=== PATIENT | female | born 1950 | race Caucasian/White ===

== ENCOUNTER 2020-04-02 13:29 | Outpatient (CLI) | payer MEDICARE, SELFPAY ==
--- NOTE | 2020-04-02 13:38 | XR_ITS ---
WS: [id number] DEXA (DUAL ENERGY X-RAY ABSORPTIOMETRY) Bone mineral density was performed using a [employer] machine. HISTORY: ASYMPTOMATIC MENOPAUSAL STATE COMPARISON: 01/10/2015 Lumbar spine BMD (L1-L4): 0.791 g/cm2 T score: -3.2 Z score: -1.4 Total hip BMD: Left: 0.809 g/cm2. T score: -1.6 Z score: 0.0 Right: 0.817 g/cm2. T score: -1.5 Z score: 0.1 10 year probability of a major osteoporotic fracture is 12%. Compared to the prior study from 01/10/2015. Lumbar spine bone mineral density has decreased by 9.2%. Bilateral hips bone mineral density has decreased by 7.4%. XR/XR DEXA axial skeleton* [id number] IMPRESSION: OSTEOPOROSIS based upon the WHO classification for females. Significant decrease in bone mineral density since the prior study in the lumba r spine and hips.
== END 2020-04-02 13:30 | disposition home or self-care (01) ==
LOC: RADWPI 13:37
PROVIDERS: Family Provider Family Medicine; PCP Family Medicine; Visit Provider Family Medicine
DX: Z78.0 Asymptomatic menopausal state (principal); M81.0 Age-related osteoporosis without current pathological fracture
CPT/HCPCS: 77080

== ENCOUNTER 2020-06-29 13:08 | Outpatient (CLI) | payer MEDICARE, OTHER, SELFPAY ==
--- NOTE | 2020-06-29 13:15 | XR_ITS ---
WS: [id number] Right knee, 3 views, 06/29/2020 Clinical Data: R KNEE PAIN Comparison: None. Findings: No fractures or dislocations are seen. The joint spaces are normal. The patella is intact. The soft t issues are unremarkable. XR/XR knee RT 3V* [id number] Impression: Negative right knee.
--- NOTE | 2020-06-29 13:15 | XR_ITS ---
WS: [id number] Left femur and thigh, AP and lateral views, 06/29/2020 Clinical Data: LEFT HIP PAIN Comparison: None. Findings: No fractures or dislocations are seen. The soft tissues are normal. The visualized knee shows no abno rmalities. XR/XR femur LT min 2V* [id number] Impression: Negative left femur and thigh.
--- NOTE | 2020-06-29 13:15 | XR_ITS ---
WS: [id number] Lumbar spine, 3 views, 06/29/2020 Clinical Data: PAIN IN L HIP Comparison: None. Findings: No compression fractures or subluxation is seen. Degenerative disc narrowing at L5-S1 is seen.. The t ransverse processes and SI joints are normal. Minimal anterior osteoarthritic spurring at L3, L4 and L5 seen. XR/XR lumbar spine 2-3V* [id number] Impression: 1. Degenerative disc disease at L5-S1. 2. Minimal osteoarthritis L3-L5.
--- NOTE | 2020-06-29 13:15 | XR_ITS ---
WS: [id number] Left hip, AP and frog leg, AP pelvis, 06/29/2020 Clinical Data: LEFT HIP PAIN Comparison: None. Findings: No fractures or dislocations are seen. Both hips are normal. The soft tissues are not remarkable. The pelvis is normal. The SI joints and pubic symphysis are unremarkable. XR/XR hip LT 2-3V wo/w pel* [id number] Impression: Negative left hip and AP pelvis.
--- NOTE | 2020-06-29 13:15 | XR_ITS ---
WS: [id number] Left knee, 3 views, 06/29/2020 Clinical Data: LEFT KNEE PAIN Comparison: None. Findings: No fractures or dislocations are seen. The joint spaces are normal. The patella is intact. The soft t issues are unremarkable. XR/XR knee LT 3V* [id number] Impression: Negative left knee.
== END 2020-06-29 13:09 | disposition home or self-care (01) ==
LOC: RAD 13:12
PROVIDERS: PCP Family Medicine; Visit Provider Family Medicine
DX: M25.552 Pain in left hip (principal); M25.562 Pain in left knee; M25.561 Pain in right knee; M51.37 Other intervertebral disc degeneration, lumbosacral region; M47.816 Spondylosis without myelopathy or radiculopathy, lumbar region
CPT/HCPCS: 72100; 73502; 73552; 73562

== ENCOUNTER 2020-09-10 14:48 | Outpatient (CLI) | payer MEDICARE, OTHER, SELFPAY ==
--- NOTE | 2020-09-10 14:54 | MR_ITS ---
WS: [id number] MRI LEFT KNEE HISTORY: LEFT KNEE PAIN COMPARISON: Radiograph 06/29/2020 Anterior cruciate ligament: Intact. Posterior cruciate ligament: Intact. Medial collateral ligament: Intact. Posterior lateral corner structures: Intact. Medial menisci: Intact. Normal signal, size and shape. Lateral meniscus: Intact. Normal signal, size and shape. Extensor mechanism: Distal quadriceps tendon and patellar tendons are intact. Fluid and soft tissue: Moderate to large suprapatellar joint effusion. There is also soft tissue madi a surrounding the medial femoral condyle and along the medial head of the gastrocnemius. Small Benjamin' s cyst with adjacent fluid. Osseous and articular structures: Patellofemoral compartment: Normal. Medial compartment: Very mild narrowing medial compartment. Cartilage is predominantly intact with so me very minimal fissuring. No full-thickness defects. Lateral compartment: Very mild narrowing of the lateral compartment. No full-thickness cartilage defe ct. No marrow edema. MR/MR knee LT wo con* [id number] IMPRESSION: 1. Moderate-sized suprapatellar joint effusion. 2. Subcutaneous edema along the medial posterior knee and extending inferior t o a small Benjamin's cyst. Partial rupture of the Benjamin cyst should be considered. 3. No meniscal tear.
== END 2020-09-10 14:49 | disposition home or self-care (01) ==
LOC: RADSHAW 14:53
PROVIDERS: PCP Family Medicine; Visit Provider Family Medicine
DX: M25.562 Pain in left knee (principal); M25.462 Effusion, left knee; R60.0 Localized edema
CPT/HCPCS: 73721

== ENCOUNTER → 2021-01-21 11:04 | Outpatient (BNVA) | payer MEDICARE, OTHER, SELFPAY | PROVIDERS: PCP Family Medicine; Visit Provider Internal Medicine | DX: M25.50 Pain in unspecified joint (principal); R76.8 Other specified abnormal immunological findings in serum; Z11.59 Encounter for screening for other viral diseases; Z11.1 Encounter for screening for respiratory tuberculosis; M81.0 Age-related osteoporosis without current pathological fracture; E55.9 Vitamin D deficiency, unspecified | CPT/HCPCS: 99204 ==

== ENCOUNTER 2021-01-21 12:44 | Outpatient (CLI) | payer MEDICARE, OTHER, SELFPAY ==
--- NOTE | 2021-01-21 12:52 | XR_ITS ---
WS: [id number] THORACIC SPINE TECHNIQUE: AP and lateral views are performed. HISTORY: R76.8 - Other specified abnormal immunological findings i... COMPARISON: None available. Straightening of the normal thoracic kyphosis. Posterior alignment is normal. There is disc space maida rowing throughout the thoracic spine with small endplate osteophytes. No fractures. Pedicles and inte rpedicular distances are normal. XR/XR thoracic spine 3V* [id number] IMPRESSION: Mild thoracic spondylosis. No acute findings.
--- NOTE | 2021-01-21 12:52 | XR_ITS ---
WS: [id number] RIGHT HAND: 2 VIEW(S) TECHNIQUE: PA, oblique and lateral. HISTORY: R76.8 - Other specified abnormal immunological findings i... COMPARISON: None available. No acute fracture or dislocation. Mild interphalangeal joint space narrowing. No erosions. No significant soft tissue edema or subluxat ion. XR/XR hand RT 2V [id number] IMPRESSION: Very mild osteoarthritis at the interphalangeal joints.
--- NOTE | 2021-01-21 12:52 | XR_ITS ---
WS: [id number] LEFT HAND: 2 VIEW(S) TECHNIQUE: PA and lateral. HISTORY: R76.8 - Other specified abnormal immunological findings i... COMPARISON: 07/21/2018 No acute fracture or dislocation. Minimal interphalangeal joint space narrowing. No soft tissue edema or erosions. XR/XR hand LT 2V [id number] IMPRESSION: Minimal interphalangeal joint space narrowing. Probably due to early osteoarthr itis.
--- NOTE | 2021-01-21 12:52 | XR_ITS ---
WS: [id number] LATERAL CERVICAL SPINE: 3 view. Lateral radiographs are performed in upright neutral, flexion and extension to the patient's toleranc e. HISTORY: R76.8 - Other specified abnormal immunological findings i... COMPARISON: None available. Mild straightening of the normal cervical lordosis on neutral imaging. On neutral 1.5 mm retrolisthes is of C2 and 2.5 mm retrolisthesis of C3. Near normal alignment on flexion. During extension the retr olisthesis of C2 increases to 2.0 mm and C3 retrolisthesis 3.2 mm. There is also mild retrolisthesis of C4 by 2 mm. Very mild anterior wedging of C7. XR/XR cervical spine fl/ex [id number] IMPRESSION: 1. Mild flexion and extension instability of C2, C3 and C4. 2. Mild anterior wedging of C7.
[2021-01-21 16:48] LABS: Basophils % 0.4 %; Eosinophils # 0.3 10^3/uL (0.0-0.8); Eosinophils % 4.3 %; Hematocrit 42.5 % (37.0-47.0); Hemoglobin 13.8 g/dL (11.5-15.3); Lymphocytes # 2.3 10^3/uL (0.8-4.8); Lymphocytes % 33.6 %; Mean Corpuscular HGB Conc 32.5 g/dL (30.0-36.0); Mean Corpuscular Hemoglobin 29.2 pg (28.0-34.0); Mean Corpuscular Volume 89.9 fL (81-99); Mean Platelet Volume 9.6 fL (7.4-10.4); Monocytes # 0.5 10^3/uL (0.2-0.9); Monocytes % 7.1 %; Neutrophils # 3.66 10^3/uL (1.8-7.7); Neutrophils % 54.5 %; Nucleated Red Blood Cells % 0 %; Platelet Count 292 10^3/cmm (130-400); Red Blood Count 4.73 10^6/uL (4.1-5.3); Red Cell Distribution Width 13.1 % (12.1-15.1); White Blood Count 6.7 10^3/uL (4.0-10.0)
[2021-01-21 17:31] LABS: Alanine Aminotransferase 19 U/L (0-33); Albumin Level 4.3 g/dL (3.5-5.2); Alkaline Phosphatase 84 IU/L (35-105); Anion Gap 12.1 (5-19); Aspartate Amino Transferase 24 U/L (0-32); Blood Urea Nitrogen 16 mg/dL (8-23); Calcium 9.7 mg/dL (8.5-10.5); Carbon Dioxide 30 mmol/L (22-29); Chloride 102 mmol/L (98-107); Creatine Phosphokinase 85 U/L (26-192); Globulin 3.1 g/dL (1.3-4.6); Glucose 82 mg/dL (65-115); Osmolality Calculated 290 mOsm/kg (285-295); Phosphorus 3.6 mg/dL (2.5-4.5); Potassium 4.1 mmol/L (3.5-5.1); Sodium 140 mmol/L (136-145); Total Bilirubin 0.4 mg/dL (0.15-1.2); Total Protein 7.4 g/dL (6.6-8.7)
[2021-01-21 17:32] LABS: Erythrocyte Sedimentation Rate 15 mm/hr (0-15)
[2021-01-21 18:20] LABS: Calcium 9.7 mg/dL (8.5-10.5); Parathyroid Hormone 45.2 pg/mL (15-65)
[2021-01-21 18:24] LABS: 25 Hydroxy Vitamin D 43 ng/mL (30-100)
[2021-01-21 21:41] LABS: Hepatitis B Core AB, Total Reactive (Nonreactive); Hepatitis B Surface Antigen Non-Reactive (Nonreactive); Hepatitis C Virus Antibody Non-Reactive (Nonreactive)
[2021-01-23 15:12] LABS: Quantiferon Mitogen 8.21 IU/mL; Quantiferon Nil 0.08 IU/mL; Quantiferon Plus TB1 0.64 IU/mL; Quantiferon Plus TB2 0.62 IU/mL; Quantiferon TB Gold POSITIVE (NEGATIVE)
== END 2021-01-21 12:45 | disposition home or self-care (01) ==
PROVIDERS: PCP Family Medicine; Visit Provider Internal Medicine
DX: R76.8 Other specified abnormal immunological findings in serum (principal); D86.9 Sarcoidosis, unspecified; Z51.81 Encounter for therapeutic drug level monitoring; M32.9 Systemic lupus erythematosus, unspecified; E55.9 Vitamin D deficiency, unspecified; Z11.59 Encounter for screening for other viral diseases; Z11.1 Encounter for screening for respiratory tuberculosis
CPT/HCPCS: 36415; 72040; 72072; 73120; 80053; 82306; 82310; 82550; 83970; 84100; 85025; 85651; 86140; 86480; 86704; 86803; 87340

== ENCOUNTER → 2021-02-12 16:30 | Outpatient (BNVA) | payer MEDICARE, OTHER, SELFPAY | PROVIDERS: PCP Family Medicine; Referring Provider Internal Medicine; Visit Provider Orthopaedic Surgery | DX: M54.2 Cervicalgia; M54.5 Low back pain; M47.816 Spondylosis without myelopathy or radiculopathy, lumbar region | CPT/HCPCS: 72110 ==

== ENCOUNTER 2021-02-15 14:04 | Outpatient (CLI) | payer MEDICARE, OTHER, SELFPAY ==
--- NOTE | 2021-02-15 14:20 | MR_ITS ---
WS: [id number] MRI LUMBAR SPINE NONCONTRAST HISTORY: M54.5 - Low back pain COMPARISON: 01/13/2018 TECHNIQUE: Sagittal and axial multisequence imaging is submitted. Mild straightening of the normal lumbar lordosis. No marrow edema or fracture. Moderate disc space narrowing at L5-S1. Similar to the prior study. Conus terminates normally at L1. L1-L2: Normal. L2-L3: Normal. L3-L4: Mild disc bulging and osteophytic ridging. Mild ligamentum flavum disease and facet arthritis. Mild bilateral subarticular recess and foraminal stenosis. Slightly greater on the LEFT than the RIG HT. L4-L5: Mild annular disc bulging and ligamentum flavum hypertrophy. Annular disc bulging encroaches a nd abuts the L5 nerve roots in the lateral recesses and mild foraminal narrowing. L5-S1: Mild annular disc bulging and facet arthritis. Slightly asymmetric disc bulge to the LEFT. The re is mild disc contact and displacement upon the LEFT S1 nerve root. RIGHT renal cyst measures 1.7 cm. MR/MR lumbar spine wo con* [id number] IMPRESSION: 1. No severe central or foraminal stenosis. 2. Asymmetric disc bulging at L5-S1 with contact upon the LEFT S1 nerve root. No change since the prior study. 3. Mild disc bulging contacting the L5 nerve roots bilaterally in the lateral recesses and mild bilateral foraminal stenosis. 4. Mild bilateral subarticular recess and foraminal stenosis at L3-4, LEFT gre ater than RIGHT.
--- NOTE | 2021-02-15 14:20 | MR_ITS ---
WS: [id number] MRI CERVICAL SPINE NONCONTRAST HISTORY: M54.2 - Cervicalgia COMPARISON: None available. Technique: Multiplanar, multisequence noncontrast imaging of the cervical spine. 2 mm retrolisthesis of C3. Otherwise alignment is normal. Mild disc space narrowing and desiccation t hroughout most significant at C5-6. Signal within the cervical cord is normal. Visualized posterior fossa is unremarkable. Craniocervical junction, C1 and C2 relationship, odontoid process and soft tissues are normal. C2-C3: Small central disc protrusion with no stenosis. C3-C4: Mild osteophytic ridging with a central disc protrusion. Near contact on the ventral thecal sa c without displacement. No significant stenosis. C4-C5: Mild annular disc bulge with a central shallow disc protrusion. No stenosis. C5-C6: Diffuse annular disc bulging with a shallow central disc protrusion. Mild bilateral foraminal narrowing due to disc osteophyte disease. C6-C7: Mild annular disc bulging and small osteophytes. No stenosis. C7-T1: Normal. T2-3: Seen only on the sagittal sequence is a possibility of a small RIGHT paracentral disc protrusio n or osteophyte. MR/MR cervical spin wo con* [id number] IMPRESSION: 1. No severe central or foraminal stenosis. 2. Near contact on the ventral thecal sac by disc osteophyte at C3-4. 3. Mild bilateral foraminal stenosis at C5-6.
== END 2021-02-15 14:05 | disposition home or self-care (01) ==
PROVIDERS: PCP Family Medicine; Visit Provider Orthopaedic Surgery
DX: M48.02 Spinal stenosis, cervical region (principal); M25.78 Osteophyte, vertebrae; M51.27 Other intervertebral disc displacement, lumbosacral region; M48.061 Spinal stenosis, lumbar region without neurogenic claudication
CPT/HCPCS: 72141; 72148

== ENCOUNTER → 2021-10-04 16:05 | Outpatient (BNVA) | payer MEDICARE, OTHER, SELFPAY | PROVIDERS: PCP Family Medicine; Visit Provider Internal Medicine | DX: M25.50 Pain in unspecified joint (principal); R76.8 Other specified abnormal immunological findings in serum; Z79.899 Other long term (current) drug therapy | CPT/HCPCS: 80053; 85025; 85651; 86140 ==

== ENCOUNTER → 2021-10-08 12:55 | Outpatient (BNVA) | payer MEDICARE, OTHER, SELFPAY | PROVIDERS: PCP Family Medicine; Visit Provider Internal Medicine | DX: M25.561 Pain in right knee (principal); R76.8 Other specified abnormal immunological findings in serum; M54.2 Cervicalgia; R76.12 Nonspecific reaction to cell mediated immunity measurement of gamma interferon antigen response without active tuberculosis; Z79.899 Other long term (current) drug therapy; M25.569 Pain in unspecified knee | CPT/HCPCS: 71046; 73560; 99214 ==

== ENCOUNTER 2021-10-08 15:10 | Outpatient (CLI) | payer MEDICARE, OTHER, SELFPAY ==
--- NOTE | 2021-10-08 15:17 | XR_ITS ---
WS: [id number] KNEE RIGHT TECHNIQUE: 2 views of the right knee CLINICAL INFORMATION: M25.569 - Pain in unspecified knee COMPARISON: June 29, 2020 FINDINGS: Exam is somewhat underpenetrated which obscures fine bony detail Right knee is normal in appearance. No evidence of acute fracture dislocation. No significant effusio n. Patella is normal. XR/XR knee RT 1-2V [id number] IMPRESSION: Right knee appears normal. If persistent pain, MRI could be obtained for furthe r evaluation. Kellgren-Nixon Classification: grade 1 (doubtful): doubtful joint space narr owing and possible osteophytic lipping
--- NOTE | 2021-10-08 15:17 | XR_ITS ---
WS: [id number] PROCEDURE: XR chest 2V* [id number] CLINICAL INFORMATION: Z79.899 - Other snf (current) drug therapy COMPARISON: FINDINGS: Heart: Normal cardiac silhouette. Lungs: Lungs are clear. No consolidation or pleural fluid. No acute pulmonary infiltrates. Bones: Normal visualized bony structures. XR/XR chest 2V* [id number] IMPRESSION: Normal chest
== END 2021-10-08 15:11 | disposition home or self-care (01) ==
PROVIDERS: PCP Family Medicine; Visit Provider Internal Medicine
DX: Z79.899 Other long term (current) drug therapy (principal); M25.569 Pain in unspecified knee
CPT/HCPCS: 71046; 73560

== ENCOUNTER 2021-12-17 10:19 | Outpatient (CLI) | payer MEDICARE, OTHER, SELFPAY ==
--- NOTE | 2021-12-17 10:30 | US_ITS ---
WS: [id number] RIGHT UPPER QUADRANT ULTRASOUND HISTORY: RUQ PAIN COMPARISON: None available. Liver: 13.5 cm in length. Normal size liver. Variable echogenicity throughout the liver. There is are as of increased and decreased echogenicity with no mass. Geographic distribution suggests fatty mejia es. Normal portal vein. Portal Vein: Normal hepatopetal flow with monophasic waveform. Gallbladder: Normally distended gallbladder with no stones or wall thickening. CBD: 0.5 cm Pancreas: Normal size and echogenicity. Right kidney: 9.8 cm in length. Normal size kidney. Cortical cyst inferior kidney measures 1.6 x 1.7 x 1.5 cm. Aorta and IVC: Unremarkable abdominal aorta and IVC. No ascites. US/US abdomen limited [id number] IMPRESSION: 1. Normal size liver with variable echogenicity. Favor hepatic steatosis with areas of fatty sparing. 2. Negative gallbladder. 3. Simple cyst lower pole RIGHT kidney.
== END 2021-12-17 10:20 | disposition home or self-care (01) ==
LOC: RAD 10:22
PROVIDERS: PCP Family Medicine; Visit Provider Family Medicine
DX: R10.11 Right upper quadrant pain (principal); N28.1 Cyst of kidney, acquired
CPT/HCPCS: 76705

== ENCOUNTER → 2021-12-19 14:58 | Outpatient (BNVA) | payer MEDICARE, OTHER, SELFPAY | PROVIDERS: PCP Family Medicine; Visit Provider Internal Medicine | DX: R76.8 Other specified abnormal immunological findings in serum (principal); Z79.899 Other long term (current) drug therapy; R53.83 Other fatigue | CPT/HCPCS: 80053; 82607; 85025; 85651; 86140 ==

== ENCOUNTER → 2022-01-02 12:51 | Outpatient (BNVA) | payer MEDICARE, OTHER, SELFPAY | PROVIDERS: PCP Family Medicine; Visit Provider Internal Medicine | DX: R10.11 Right upper quadrant pain (principal); R76.8 Other specified abnormal immunological findings in serum; R76.12 Nonspecific reaction to cell mediated immunity measurement of gamma interferon antigen response without active tuberculosis; M79.89 Other specified soft tissue disorders; M48.00 Spinal stenosis, site unspecified; Z79.899 Other long term (current) drug therapy | CPT/HCPCS: 99214 ==

== ENCOUNTER 2022-01-02 14:44 | Emergency (ER) | payer MEDICARE, OTHER, SELFPAY ==
[2022-01-02 15:03] VITALS: BP 167/62; PULSE 66; RESP 14; TEMP 36.8; O2SAT 99; BMI 26.2
--- NOTE | 2022-01-02 15:10 | USCV_ITS ---
Grimaldo Austynkennedy Age: 71 Gender: F : 1950 Exam Date: 01/02/2022 15:32 Ordering Phys: Liu Ospina DO Technologist: Tone [place] Exam Location: [facility] [place]_ Indication: left leg swelling and pain PROCEDURES: Venous duplex imaging was performed in only the left lower extremity. The following venous structures were evaluated: common femoral vein, profunda vein, proximal portion of the greater saphenous vein, superficial femoral vein, and the popliteal vein. In addition, the posterior tibial and peroneal trunk were evaluated. Serial compression, augmentation maneuvers, and spectral Doppler flow evaluation were performed. FINDINGS: Normal 2-D Doppler and augmentation and compressibility throughout the lower extremity venous structures. Additional imaging through the proximal calf veins also reveals no thrombus. Limited evaluation of the greater saphenous vein is patent with no thrombus. CONCLUSIONS No DVT left lower extremity. Dr. Mi Jung DO (Electronically Signed) Final Date: 02 January 2022 15:56 S
--- NOTE | 2022-01-02 15:12 | W.ED.GENADLT ---
HPI - General Adult General: Chief complaint: Extremity Problem,Nontraumatic Stated complaint: poss bloodclot Time Seen by Provider: 01/02/22 15:07 Source: patient Mode of arrival: ambulatory Limitations: no limitations History of Present Illness: 71-year-old female who presents to the emergency room with complaint of left leg swelling for the last week. She is intermittently had what she describes as shortness of breath with walking and activity she will feel mildly short of breath she also had a vague chest discomfort she refers to come to the sternal area and epigastric area that is been going on for the last couple of weeks as well it is not changed significantly. She is not tachycardic or hypotensive or hypoxic. Onset (ago): week(s) (1) Severity: mild Quality: aching Pain Consistency: intermittent Relieving factors: none Exacerbating factors: none Associated symptoms: Reports dyspnea (Mild); Deny chest pain, confusion, cough, diaphoresis, decreased appetite, fevers/chills, headache(s), malaise, nausea, rash, palpitations, seizures, short of breath, syncope, vomiting or weakness Treatments prior to arrival: none Review of Systems Const: Denies: fever(s), chills, body aches, malaise or diaphoresis ENMT: Denies: throat pain, ear or mastoid pain, nasal discharge or nasal congestion Card: Denies: chest pain, palpitations or syncope Resp: Reports: dyspnea (Mild); Denies: productive cough or non-productive cough GI: Denies: abdominal pain, nausea or vomiting : Denies: flank pain, difficulty voiding, dysuria, urinary frequency or urinary urgency Skin/Breast: Denies: rash Neuro: Denies: headache(s) or confusion FOR[facility]LY [facility], [facility] ED PFSH: Medical History Angioma Anxiety Depression Fibromyalgia GERD (gastroesophageal reflux disease) Hepatitis C Hypersomnia Hypertension Hypertriglyceridemia Irritable bowel disease Memory loss OCD (obsessive compulsive disorder) Palpitations Restless leg syndrome Type 2 diabetes mellitus Surgical History History of abdominal hysterectomy History of carpal tunnel release right 09-07-2012 History of colonoscopy 01/05/2015 History of rhinoplasty Social History Smoking and tobacco status: never smoked Alcohol intake: former History of recent travel: No Physical Exam Const: COMMON NORMALS: no acute distress GENERAL APPEARANCE: cooperative and comfortable ORIENTATION/CONSCIOUSNESS: Yes awake, Yes oriented to person, Yes oriented to place and Yes oriented to time HENMT: COMMON NORMALS: normocephalic, atraumatic and hearing grossly normal bilaterally HEAD & SCALP: normocephalic and atraumatic Neck/C-Spine: COMMON NORMALS: no JVD Resp: COMMON NORMALS: normal respiratory effort, No retractions, No use of accessory muscles and clear to auscultation bilaterally AUSCULTATION: clear to auscultation bilaterally Cardio: COMMON NORMALS: no JVD, regular rate, regular rhythm and No murmurs present (Cardio) RATE: regular rate RHYTHM: regular rhythm GI: COMMON NORMALS: Soft to palpation and No hepatosplenomegaly present AUSCULTATION: Yes normoactive bowel sounds PALPATION: Yes Soft to palpation, No Tenderness to palpation present (GI), No Guarding due to palpation present (GI) and Yes No hepatosplenomegaly present Extremity: COMMON NORMALS: normal to inspection, capillary refill normal, no clubbing, cyanosis or edema, no calf tenderness and no pedal edema GENERAL: Yes edema Neuro: SENSORIUM/ORIENTATION: Yes oriented to person, Yes oriented to place and Yes oriented to time Skin: COMMON NORMALS: no rashes or lesions noted GENERAL SKIN EXAM: no rashes or lesions noted Course Vital Signs: Vital signs: Vital Signs Temperature 98.3 F 01/02/22 15:03 Pulse Rate 61 01/02/22 18:16 Respiratory Rate 16 01/02/22 18:16 Blood Pressure 210/94 01/02/22 18:16 Pulse Oximetry 97 01/02/22 18:16 [facility] - General Adult Medical Decision Making Imaging reviewed no DVT. Continue current medications elevate leg suspect some of her swelling is likely related to the amlodipine. Follow-up with primary care Medical Records I reviewed the patient's medical records. Lab Data I reviewed the patient's lab results. Discharge Plan Discharge Patient Disposition: Home Clinical Impression: Leg swelling Condition: Stable Prescriptions: No Action albuterol sulfate 90 mcg/actuation HFA aerosol inhaler 1 inh inhalation QID 0RF amlodipine 10 mg tablet 10 mg PO DAILY 0RF clindamycin phosphate 1 % gel 1 applic topical DAILY 0RF Flovent HFA 110 mcg/actuation HFA aerosol inhaler 1 puff inhalation BID 0RF fluticasone propionate 50 mcg/actuation spray,suspension 1 spray intranasal DAILY 0RF Rx Instructions: administer into each nostril lisinopril 20 mg tablet 20 mg PO DAILY 0RF metoprolol tartrate 25 mg tablet 25 mg PO DAILY 0RF venlafaxine 75 mg tablet 75 mg PO DAILY 0RF valacyclovir 500 mg tablet 500 mg PO DAILY 0RF cholecalciferol (vitamin D3) 10 mcg (400 unit) capsule 10 mcg PO DAILY 0RF guaifenesin [Mucinex] 600 mg tablet extended release 12hr 600 mg PO Q12H PRN0RF vitamin B complex [B Complex-Vitamin B12] Tablet 1 tab PO DAILY 0RF biotin 5 mg capsule 5 mg PO DAILY 0RF All Day Allergy (cetirizine) 10 mg capsule 10 mg PO DAILY PRN0RF CBD sublingual 0RF Discharge Orders: Discharge ED (Routine); Ordered 01/02/22 Ordered By: Liu Ospina Referrals: Ashlee Fry MD [Primary Care Provider] - Discharge Diet: Usual diet Discharge Activity: Increase activity as tolerated Patient Instructions: Opioid Safety Activity Restrictions/Additional Instructions: If leg discomfort persist follow-up with your primary care doctor Coding Level of Care Code 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
--- NOTE | 2022-01-02 15:15 | ECG_ITS ---
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 Measurements Intervals Priddy Rate: 58 P: 52 GA: 142 QRS: 19 QRSD: 78 T: 61 QT: 405 QTc: 400 Interpretive Statements SINUS BRADYCARDIA No previous ECG available for comparison Electronically Signed On 01-02-2022 23:51:16 CDT by Ryne Osorio M.D. [email or web address]
[2022-01-02 17:25] VITALS: BP 208/81; PULSE 60; RESP 16; O2SAT 98
[2022-01-02] MEDS: hyDRALAzine 20 mg/mL INJ 1 mL 25 MG IM (18:10)
[2022-01-02] MEDS: amlodipine 10 mg Tablet PO (18:11)
[2022-01-02 18:16] VITALS: BP 210/94; PULSE 61; RESP 16; O2SAT 97
== END 2022-01-02 18:17 | disposition home or self-care (01) ==
PROVIDERS: Emergency Provider Family Medicine; PCP Family Medicine
DX: M79.89 Other specified soft tissue disorders (principal); I10 Essential (primary) hypertension; E11.9 Type 2 diabetes mellitus without complications
CPT/HCPCS: 93005; 93971; 96372; 99283; J0360

== ENCOUNTER → 2022-12-09 10:26 | Outpatient (BNVA) | payer MEDICARE, OTHER, SELFPAY | PROVIDERS: PCP Family Medicine; Visit Provider Internal Medicine | DX: M25.50 Pain in unspecified joint (principal); M79.89 Other specified soft tissue disorders; M25.569 Pain in unspecified knee | CPT/HCPCS: 80053; 85025; 85651; 86140 ==

== ENCOUNTER → 2022-12-12 11:37 | Outpatient (BNVA) | payer MEDICARE, OTHER, SELFPAY | PROVIDERS: PCP Family Medicine; Visit Provider Internal Medicine | DX: R76.8 Other specified abnormal immunological findings in serum (principal); M79.89 Other specified soft tissue disorders; G62.9 Polyneuropathy, unspecified; R51.9 Headache, unspecified; R76.12 Nonspecific reaction to cell mediated immunity measurement of gamma interferon antigen response without active tuberculosis | CPT/HCPCS: 99214 ==

== ENCOUNTER 2023-01-01 09:34 | Outpatient (CLI) | payer MEDICARE, OTHER, SELFPAY ==
--- NOTE | 2023-01-01 08:30 | CT_ITS ---
WS: [id number] CT HEAD NONCONTRAST HISTORY: R51.9 - Headache, unspecified TECHNIQUE: Contiguous axial imaging performed through the brain in 2.5 mm imaging. Bone and soft tiss ue windows. Sagittal and coronal reformats reviewed. All CT scans at [facility] use at least one of these dose optimization techniques: automated exposure control; mA and/or kV adjustment per pa tient size (includes targeted exams where dose is matched to clinical indication); or iterative recon struction. DLP: 991.59 mGy.cm COMPARISON: None available. No acute intracranial hemorrhage, midline shift or mass effect. Moderate atrophy. Severe bilateral extensive small vessel ischemic changes. There is confluent low at tenuation within the white matter. Mild cerebellar atrophy also. No prior large territory infarct. Ventricles: Normal size with no hydrocephalus. No inferior displacement of cerebellar tonsils. Paranasal sinuses: As visualized are clear. Mastoid air cells: Well pneumatized. Calvarium and scalp: Skull is intact with no soft tissue edema or swelling. CT/CT head wo con* [id number] IMPRESSION: 1. No acute intracranial hemorrhage or edema. 2. Moderate atrophy cerebellum and cerebrum. 3. Severe small vessel white matter ischemic disease.
--- NOTE | 2023-01-01 09:30 | USCV_ITS ---
Jeny Grimaldo Age: 72 Gender: F : 1950 Exam Date: 01/01/2023 10:07 Ordering Phys: Su De La Vega MD Technologist: Exam Location: [facility] [place] Indication: RIGHT LEFT Brachial 145.00 mmHg Brachial 148.00 mmHg Pressure (mmHg) Waveform Pressure (mmHg) Waveform 1.10 Ankle/Brachial Index 1.13 FINDINGS Resting KIET 1.1 on the right and 1.13 on the left. PVR waveforms showing slight blunting of the dicrotic notch CONCLUSIONS 1. Normal resting ABIs bilaterally. 2. Some features of arterial sclerosis No significant arterial obstruction, based on the above findings Dr Marvin Granados MD [facility] (Electronically Signed) Final Date: 02 January 2023 18:27 S
== END 2023-01-01 09:35 | disposition home or self-care (01) ==
LOC: RAD 09:38
PROVIDERS: PCP Family Medicine; Visit Provider Internal Medicine
DX: R51.9 Headache, unspecified (principal); I73.9 Peripheral vascular disease, unspecified
CPT/HCPCS: 70450; 93922

== ENCOUNTER → 2023-02-16 12:39 | Outpatient (BNVA) | payer MEDICARE, OTHER, SELFPAY | PROVIDERS: PCP Family Medicine; Visit Provider Internal Medicine | DX: M81.0 Age-related osteoporosis without current pathological fracture (principal) | CPT/HCPCS: 99204 ==

== ENCOUNTER 2023-02-24 14:53 | Outpatient (CLI) | payer MEDICARE, OTHER, SELFPAY ==
--- NOTE | 2023-02-24 15:30 | XR_ITS ---
WS: [id number] DEXA (DUAL ENERGY X-RAY ABSORPTIOMETRY) Bone mineral density was performed using a [employer] machine. HISTORY: osteoporosis COMPARISON: 04/02/2020 Lumbar spine BMD (L1-L4): 0.856 g/cm2 T score: -2.7 Z score: -0.9 Total hip BMD: Left: 0.781 g/cm2. T score: -1.8 Z score: -0.1 Right: 0.807 g/cm2. T score: -1.6 Z score: 0.1 10 year probability of a major osteoporotic fracture is 12.4%. Compared to the prior study from 04/02/2020. Lumbar spine bone mineral density has increased by 8.2%. Bilateral hips bone mineral density has decreased by 2.3%. XR/XR DEXA axial skeleton* 81452 IMPRESSION: OSTEOPENIA based upon the WHO classification for females. Significant increase in bone mineral density within the lumbar spine. Significant decrease of bone mineral density within the hips.
== END 2023-02-24 14:54 | disposition home or self-care (01) ==
PROVIDERS: PCP Family Medicine; Visit Provider Internal Medicine
DX: M81.0 Age-related osteoporosis without current pathological fracture (principal)
CPT/HCPCS: 77080

== ENCOUNTER → 2023-02-25 10:02 | Outpatient (BNVA) | payer MEDICARE, OTHER, SELFPAY | PROVIDERS: PCP Family Medicine; Referring Provider Internal Medicine; Visit Provider Internal Medicine | DX: E11.9 Type 2 diabetes mellitus without complications (principal) | CPT/HCPCS: 80053; 80061; 82043; 82306; 82310; 83036; 83970; 84439; 84443 ==

== ENCOUNTER → 2023-02-27 09:09 | Outpatient (BNVA) | payer MEDICARE, OTHER, SELFPAY | PROVIDERS: PCP Family Medicine; Referring Provider Internal Medicine; Visit Provider Internal Medicine | DX: E11.9 Type 2 diabetes mellitus without complications (principal); M81.0 Age-related osteoporosis without current pathological fracture | CPT/HCPCS: 82384; 82530; 82570 ==

== ENCOUNTER → 2023-03-04 07:36 | Outpatient (BNVA) | payer MEDICARE, OTHER, SELFPAY | PROVIDERS: PCP Family Medicine; Visit Provider Internal Medicine | DX: M81.0 Age-related osteoporosis without current pathological fracture (principal); E11.9 Type 2 diabetes mellitus without complications | CPT/HCPCS: 36415; 83690; 99214 ==

== ENCOUNTER → 2023-03-07 12:20 | Outpatient (BNVA) | payer MEDICARE, OTHER, SELFPAY | PROVIDERS: PCP Family Medicine; Visit Provider Emergency Medicine | DX: R10.9 Unspecified abdominal pain (principal); R34 Anuria and oliguria | CPT/HCPCS: 81000; 87086 ==

== ENCOUNTER → 2023-03-19 07:49 | Outpatient (BNVA) | payer MEDICARE, OTHER, SELFPAY | PROVIDERS: PCP Internal Medicine; Referring Provider Internal Medicine; Visit Provider Psychiatry & Neurology Neurology | DX: G62.9 Polyneuropathy, unspecified (principal); R51.9 Headache, unspecified; M79.89 Other specified soft tissue disorders | CPT/HCPCS: 36415; 82607; 82746; 83921; 86617; 86780 ==

== ENCOUNTER → 2023-03-19 07:49 | Outpatient (BNVA) | payer MEDICARE, OTHER, SELFPAY | PROVIDERS: PCP Internal Medicine; Referring Provider Internal Medicine; Visit Provider Psychiatry & Neurology Neurology | DX: R41.3 Other amnesia (principal); G25.81 Restless legs syndrome; R51.9 Headache, unspecified; R29.818 Other symptoms and signs involving the nervous system; E11.42 Type 2 diabetes mellitus with diabetic polyneuropathy; G47.00 Insomnia, unspecified; H91.93 Unspecified hearing loss, bilateral; Z97.4 Presence of external hearing-aid; R90.89 Other abnormal findings on diagnostic imaging of central nervous system; G62.9 Polyneuropathy, unspecified; M79.89 Other specified soft tissue disorders | CPT/HCPCS: 36415; 82607; 82746; 83921; 86617; 86780; 99204 ==

== ENCOUNTER 2023-03-31 12:25 | Outpatient (CLI) | payer MEDICARE, OTHER, SELFPAY ==
--- NOTE | 2023-03-31 13:15 | USCV_ITS ---
Jeny Grimaldo Age: 72 Gender: F : 1950 Exam Date: 03/31/2023 12:56 Ordering Phys: Jeffrey Raygoza MD Technologist: [place] [facility] [place] Indication: Risk Factors: Previous Vascular Surgery: Right Brachial BP: / Left Brachial BP: / Right Left Velocity (cm/s) Spectral Plaque Velocity (cm/s) Spectral Plaque Syst/Diast Broadening Syst/Diast Broadening 66.00/ 15.30 Prox CCA 68.40 / 12.40 61.70/ 12.30 Mid CCA 68.30 / 14.90 58.00/ 16.00 Distal CCA 53.10 / 13.60 49.40/ 13.60 Prox ICA 66.70 / 20.40 63.00/ 21.20 Mid ICA 81.50 / 26.30 64.70/ 21.60 Distal ICA 69.20 / 24.50 54.90 ECA 67.30 0.98 ICA/CCA 1.19 Antegrade Vertebral Antegrade 54.40/ 15.50 cm/s 42.00/ 13.10 cm/s Tri Subclavian Tri 121.3 93.70 0 CONCLUSIONS Right ICA stenosis <50%. Moderate calcified atheromatous plaque right carotid bulb/ICA. Left ICA stenosis <50%. Mild atheromatous plaque left carotid bulb/ICA. Intimal thickening in the common carotid arteries and internal carotid arteries bilaterally. Normal antegrade Doppler flow noted in the right vertebral artery. Normal antegrade Doppler flow noted in the left vertebral artery. Sai Santos MD (Electronically Signed) Final Date: 31 March 2023 16:41 S
== END 2023-03-31 12:26 | disposition home or self-care (01) ==
PROVIDERS: PCP Internal Medicine; Visit Provider Psychiatry & Neurology Neurology
DX: G62.9 Polyneuropathy, unspecified (principal); R51.9 Headache, unspecified
CPT/HCPCS: 93880

== ENCOUNTER 2023-04-07 10:46 | Outpatient (CLI) | payer MEDICARE, OTHER, SELFPAY ==
--- NOTE | 2023-04-07 11:00 | MR_ITS ---
WS: [id number] MRI HEAD WITHOUT CONTRAST TECHNIQUE: Sagittal T1, T2 axial, T2 axial FLAIR, axial and coronal T1 images, axial susceptibility w eighted imaging, axial diffusion weighted images, and coronal T2 images were obtained. CLINICAL INFORMATION: R51.9 - Headache, unspecified COMPARISON: CT head January 01, 2023 FINDINGS: No evidence of restricted diffusion to suggest acute ischemia. Ventricular system and basal cisterns are patent. Moderate to advanced small vessel changes with moderate parenchymal volume loss. Small ve ssel changes in the lorena. Normal posterior fossa. Normal vascular flow voids at the skull base. No ex tra-axial fluid collections. No evidence of mass or mass effect. Mild mucosal thickening in the paran abel sinuses. Opacification LEFT maxillary sinus. Mastoid air cells well aerated. Tiny chronic lacuna r infarct LEFT caudate. No hemosiderin on susceptibly weighted images. Normal optic chiasm and pituitary infundibulum. Modera te symmetric atrophy temporal lobes and hippocampal formations. MR/MR head wo con* [id number] IMPRESSION: 1. No evidence of restricted diffusion to suggest acute ischemia. 2. Moderate to advanced small vessel changes with moderate parenchymal volume loss. 3. Tiny chronic lacunar infarct LEFT caudate. 4. No hemosiderin on susceptibly weighted images. 5. Moderate symmetric atrophy temporal lobes and hippocampal formations. 6. Mild mucosal thickening in the ethmoid air cells. Chronic appearing opacifi cation LEFT maxillary sinus
== END 2023-04-07 10:47 | disposition home or self-care (01) ==
PROVIDERS: PCP Internal Medicine; Visit Provider Psychiatry & Neurology Neurology
DX: G62.9 Polyneuropathy, unspecified (principal); R51.9 Headache, unspecified
CPT/HCPCS: 36415; 70551; 82607; 82746; 83921; 86617; 86780

== ENCOUNTER → 2023-04-17 09:33 | Outpatient (BNVA) | payer MEDICARE, OTHER, SELFPAY | PROVIDERS: PCP Internal Medicine; Visit Provider Internal Medicine | DX: M48.00 Spinal stenosis, site unspecified; R76.8 Other specified abnormal immunological findings in serum; R76.12 Nonspecific reaction to cell mediated immunity measurement of gamma interferon antigen response without active tuberculosis | CPT/HCPCS: 99214 ==

== ENCOUNTER 2023-04-23 12:03 | Outpatient (CLI) | payer MEDICARE, OTHER, SELFPAY ==
[2023-04-23 13:19] LABS: Basophils % 0.4 %; Eosinophils # 0.4 10^3/uL (0.0-0.8); Eosinophils % 4.8 %; Hematocrit 41.1 % (37.0-47.0); Hemoglobin 13.7 g/dL (11.5-15.3); Lymphocytes % 27.2 %; Mean Corpuscular HGB Conc 33.3 g/dL (30.0-36.0); Mean Corpuscular Volume 90.1 fl (81-99); Mean Platelet Volume 9.7 fL (7.4-10.4); Monocytes # 0.5 10^3/uL (0.2-0.9); Monocytes % 6.8 %; Neutrophils # 4.43 10^3/uL (1.8-7.7); Neutrophils % 60.5 %; Nucleated Red Blood Cells % 0 %; Platelet Count 272 10^3/cmm (130-400); Red Blood Count 4.56 10^6/uL (4.1-5.3); Red Cell Distribution Width 12.1 % (12.1-15.1); White Blood Count 7.3 10^3/uL (4.0-10.0)
[2023-04-23 13:20] LABS: Erythrocyte Sedimentation Rate 2 mm/hr (0-15)
[2023-04-23 13:40] LABS: Alanine Aminotransferase 24 U/L (0-33); Alkaline Phosphatase 112 U/L (35-105); Aspartate Amino Transferase 22 U/L (0-32); Blood Urea Nitrogen 18 mg/dL (8-23); Calcium 9.8 mg/dL (8.5-10.5); Carbon Dioxide 28 mmol/L (22-29); Chloride 104 mmol/L (98-107); Globulin 2.7 g/dL (1.3-4.6); Glucose 125 mg/dL (65-115); Osmolality Calculated 293 mOsm/kg (285-295); Sodium 140 mmol/L (136-145); Total Bilirubin 0.5 mg/dL (0.15-1.2); Total Protein 6.7 g/dL (6.6-8.7)
[2023-05-03 02:24] LABS: 14.3.3 ETA Protein <0.2 ng/mL (<0.2)
== END 2023-04-23 12:04 | disposition home or self-care (01) ==
PROVIDERS: PCP Internal Medicine; Visit Provider Internal Medicine
DX: M48.00 Spinal stenosis, site unspecified (principal); R51.9 Headache, unspecified
CPT/HCPCS: 36415; 80053; 83520; 85025; 85651; 86140

== ENCOUNTER → 2023-04-29 13:17 | Outpatient (BNVA) | payer MEDICARE, OTHER, SELFPAY | PROVIDERS: PCP Internal Medicine; Visit Provider Internal Medicine | DX: M81.0 Age-related osteoporosis without current pathological fracture (principal); E55.9 Vitamin D deficiency, unspecified; E11.9 Type 2 diabetes mellitus without complications; B02.9 Zoster without complications | CPT/HCPCS: 99214 ==

== ENCOUNTER → 2023-04-30 12:42 | Outpatient (BNVA) | payer MEDICARE, OTHER, SELFPAY | PROVIDERS: PCP Internal Medicine; Visit Provider Nurse Practitioner Family | DX: L23.9 Allergic contact dermatitis, unspecified cause (principal); L81.0 Postinflammatory hyperpigmentation; L57.0 Actinic keratosis; L57.8 Other skin changes due to chronic exposure to nonionizing radiation; L82.0 Inflamed seborrheic keratosis; D22.5 Melanocytic nevi of trunk | CPT/HCPCS: 17000; 17003; 17110; 99214 ==

== ENCOUNTER 2023-05-04 14:30 | Outpatient (CLI) | payer MEDICARE, OTHER, SELFPAY | END 2023-05-04 14:31 | disposition home or self-care (01) | LOC: SLEEP 05-06 10:29 | PROVIDERS: PCP Internal Medicine; Visit Provider Psychiatry & Neurology Neurology | DX: G47.33 Obstructive sleep apnea (adult) (pediatric) (principal); G25.81 Restless legs syndrome | CPT/HCPCS: G0399 ==

== ENCOUNTER → 2023-06-07 13:47 | Outpatient (BNVA) | payer MEDICARE, OTHER, SELFPAY | PROVIDERS: PCP Internal Medicine; Visit Provider Emergency Medicine | DX: R69 Illness, unspecified (principal); J98.8 Other specified respiratory disorders; B97.89 Other viral agents as the cause of diseases classified elsewhere | CPT/HCPCS: 87400; 87426 ==

== ENCOUNTER → 2023-06-18 11:16 | Outpatient (BNVA) | payer MEDICARE, OTHER, SELFPAY | PROVIDERS: PCP Internal Medicine; Visit Provider Psychiatry & Neurology Neurology | DX: R41.3 Other amnesia (principal); G31.9 Degenerative disease of nervous system, unspecified; I47.10 Supraventricular tachycardia, unspecified | CPT/HCPCS: 99213 ==

== ENCOUNTER → 2023-07-16 09:19 | Outpatient (BNVA) | payer MEDICARE, OTHER, SELFPAY | PROVIDERS: PCP Internal Medicine; Visit Provider Student in an Organized Health Care Education/Training Program | DX: R76.12 Nonspecific reaction to cell mediated immunity measurement of gamma interferon antigen response without active tuberculosis (principal) | CPT/HCPCS: 99215 ==

== ENCOUNTER 2023-08-27 15:22 | Outpatient (CLI) | payer MEDICARE, OTHER, SELFPAY ==
[2023-08-27 16:22] LABS: Total Volume Urine 2700 ml
[2023-08-27 16:47] LABS: Urine Creatinine 53 mg/dL (28-217)
[2023-08-27 16:56] LABS: Calcium 10.3 mg/dL (8.5-10.5)
[2023-08-27 17:04] LABS: Parathyroid Hormone 66.4 pg/mL (15-65)
[2023-08-27 17:15] LABS: Calcium 24 Hour Urine 262 mg/24hr (100-300); Urine Calcium Result 9.7 mg/dL
[2023-08-30 13:20] LABS: Vit D 1,25 (Oh)2, Total 47 pg/mL (18-72); Vit D2 1,25 (Oh)2 <8 pg/mL; Vit D3 1,25 (Oh)2 47 pg/mL
== END 2023-08-27 15:23 | disposition home or self-care (01) ==
LOC: LAB 15:26
PROVIDERS: PCP Internal Medicine; Visit Provider Internal Medicine
DX: M81.0 Age-related osteoporosis without current pathological fracture (principal); E55.9 Vitamin D deficiency, unspecified
CPT/HCPCS: 36415; 82310; 82340; 82570; 82652; 83970

== ENCOUNTER → 2023-09-17 10:53 | Outpatient (BNVA) | payer MEDICARE, OTHER, SELFPAY | PROVIDERS: PCP Family Medicine; Visit Provider Psychiatry & Neurology Neurology | DX: R41.3 Other amnesia (principal) | CPT/HCPCS: 99212 ==

== ENCOUNTER → 2023-09-24 11:39 | Outpatient (BNVA) | payer MEDICARE, OTHER, SELFPAY | PROVIDERS: PCP Family Medicine; Visit Provider Internal Medicine | DX: E11.9 Type 2 diabetes mellitus without complications (principal); M81.0 Age-related osteoporosis without current pathological fracture; G47.33 Obstructive sleep apnea (adult) (pediatric) | CPT/HCPCS: 99214 ==

== ENCOUNTER → 2023-10-06 08:45 | Outpatient (BNVA) | payer MEDICARE, OTHER, SELFPAY | PROVIDERS: PCP Family Medicine; Visit Provider Student in an Organized Health Care Education/Training Program | DX: Z22.7 Latent tuberculosis (principal) | CPT/HCPCS: 99214 ==

== ENCOUNTER → 2023-11-04 13:18 | Outpatient (BNVA) | payer MEDICARE, OTHER, SELFPAY | PROVIDERS: PCP Family Medicine; Referring Provider Student in an Organized Health Care Education/Training Program; Visit Provider Student in an Organized Health Care Education/Training Program | DX: Z22.7 Latent tuberculosis (principal); Z79.899 Other long term (current) drug therapy | CPT/HCPCS: 80053; 85025 ==

== ENCOUNTER 2023-11-30 14:26 | Outpatient (CLI) | payer MEDICARE, OTHER, SELFPAY ==
[2023-11-30 15:05] LABS: Basophils % 0.5 %; Eosinophils # 0.2 10^3/uL (0.0-0.8); Eosinophils % 3.6 %; Hematocrit 41.9 % (36-47); Lymphocytes # 1.4 10^3/uL (0.8-4.8); Lymphocytes % 22.1 %; Mean Corpuscular HGB Conc 32.9 g/dL (30-55); Mean Corpuscular Hemoglobin 29.7 pg (27-33); Mean Corpuscular Volume 90.3 fl (85-98); Mean Platelet Volume 9.3 fL (7.4-10.4); Monocytes # 0.4 10^3/uL (0.2-0.9); Monocytes % 6.7 %; Neutrophils # 4.09 10^3/uL (1.8-7.7); Neutrophils % 66.9 %; Nucleated Red Blood Cells % 0 %; Platelet Count 269 10^3/cmm (157-399); Red Blood Count 4.64 10^6/uL (3.85-5.65); Red Cell Distribution Width 12.3 % (12.1-15.1); White Blood Count 6.11 10^3/uL (3.29-11.43)
[2023-11-30 15:23] LABS: Alanine Aminotransferase 19 U/L (0-33); Albumin Level 4.4 g/dL (3.5-5.2); Alkaline Phosphatase 121 U/L (35-105); Anion Gap 12.4 (5-19); Aspartate Amino Transferase 25 U/L (0-32); Blood Urea Nitrogen 13 mg/dL (8-23); Calcium 9.7 mg/dL (8.5-10.5); Carbon Dioxide 28 mmol/L (22-29); Chloride 104 mmol/L (98-107); Glucose 73 mg/dL (65-115); Osmolality Calculated 289 mOsm/kg (285-295); Potassium 4.4 mmol/L (3.5-5.1); Sodium 140 mmol/L (136-145); Total Bilirubin 0.6 mg/dL (0.15-1.2); Total Protein 7.4 g/dL (6.6-8.7)
== END 2023-11-30 14:27 | disposition home or self-care (01) ==
LOC: LAB 14:27
PROVIDERS: PCP Family Medicine; Visit Provider Student in an Organized Health Care Education/Training Program
DX: Z79.899 Other long term (current) drug therapy (principal); Z22.7 Latent tuberculosis
CPT/HCPCS: 36415; 80053; 84207; 85025

== ENCOUNTER → 2023-12-02 13:49 | Outpatient (BNVA) | payer MEDICARE, OTHER, SELFPAY | PROVIDERS: PCP Family Medicine; Referring Provider Internal Medicine; Visit Provider Internal Medicine | DX: E11.9 Type 2 diabetes mellitus without complications (principal); M81.0 Age-related osteoporosis without current pathological fracture | CPT/HCPCS: 80053; 80061; 82043; 83036 ==

== ENCOUNTER → 2023-12-15 14:00 | Outpatient (BNVA) | payer MEDICARE, OTHER, SELFPAY | PROVIDERS: PCP Family Medicine; Visit Provider Dermatology | DX: L82.1 Other seborrheic keratosis (principal); L72.0 Epidermal cyst; D48.5 Neoplasm of uncertain behavior of skin; L82.0 Inflamed seborrheic keratosis; L60.8 Other nail disorders; L57.0 Actinic keratosis | CPT/HCPCS: 11102; 17000; 17110; 99213 ==

== ENCOUNTER → 2023-12-24 11:07 | Outpatient (BNVA) | payer MEDICARE, OTHER, SELFPAY | PROVIDERS: PCP Family Medicine; Visit Provider Internal Medicine | DX: M81.0 Age-related osteoporosis without current pathological fracture (principal); E11.9 Type 2 diabetes mellitus without complications; E53.8 Deficiency of other specified B group vitamins; Z79.899 Other long term (current) drug therapy; K21.9 Gastro-esophageal reflux disease without esophagitis; J44.9 Chronic obstructive pulmonary disease, unspecified | CPT/HCPCS: 36415; 80053; 82306; 82310; 82607; 83970; 85025; 99214 ==

== ENCOUNTER → 2024-02-03 13:11 | Outpatient (BNVA) | payer MEDICARE, OTHER, SELFPAY | PROVIDERS: PCP Family Medicine; Referring Provider Student in an Organized Health Care Education/Training Program; Visit Provider Student in an Organized Health Care Education/Training Program | DX: Z22.7 Latent tuberculosis (principal) | CPT/HCPCS: 80076 ==

== ENCOUNTER → 2024-02-09 15:00 | Outpatient (BNVA) | payer MEDICARE, OTHER, SELFPAY | PROVIDERS: PCP Family Medicine; Visit Provider Student in an Organized Health Care Education/Training Program | DX: R76.12 Nonspecific reaction to cell mediated immunity measurement of gamma interferon antigen response without active tuberculosis (principal) | CPT/HCPCS: 99212 ==

== ENCOUNTER 2024-04-15 11:15 | Outpatient (CLI) | payer MEDICARE, OTHER, SELFPAY ==
--- NOTE | 2024-04-15 11:15 | USCV_ITS ---
Jeny Grimaldo Age: 73 Gender: F : 1950 Exam Date: 04/15/2024 11:24 Ordering Phys: Jeffrey Raygoza MD Technologist: Brijesh Finney [place] [facility] [place]: Risk Factors: Previous Vascular Surgery: Right Brachial BP: / Left Brachial BP: / Right Left Velocity (cm/s) Spectral Plaque Velocity (cm/s) Spectral Plaque Syst/Diast Broadening Syst/Diast Broadening 81.70/ 19.40 Prox CCA 73.00 / 12.60 73.60/ 17.70 Mid CCA 77.00 / 15.30 71.20/ 16.50 Distal CCA 60.20 / 15.30 49.80/ 14.20 Prox ICA 58.80 / 16.70 58.40/ 17.90 Mid ICA 67.20 / 20.90 62.50/ 19.50 Distal ICA 71.30 / 22.80 61.70 ECA 67.20 0.90 ICA/CCA 1.20 Antegrade Vertebral Antegrade 45.40/ 11.60 cm/s 40.00/ 8.50 cm/s Tri Subclavian Tri 103.1 145.1 0 0 CONCLUSIONS Right ICA stenosis <50%. Mild atheromatous plaque right carotid bulb/ICA. Left ICA stenosis <50%. Mild atheromatous plaque left carotid bulb/ICA. Intimal thickening in the common carotid arteries and internal carotid arteries bilaterally. 4.5 x 1.9 x 1.1cm hypoechoic nodule posterior to the Left thyroid may represent parathyroid adenoma vs enlarged lymph node. Recommend Neck and chest contrast CT Normal antegrade Doppler flow noted in the right vertebral artery. Normal antegrade Doppler flow noted in the left vertebral artery. Sai Santos MD (Electronically Signed) Final Date: 15 April 2024 17:28 S
== END 2024-04-15 11:16 | disposition home or self-care (01) ==
LOC: RAD 11:17
PROVIDERS: PCP Family Medicine; Visit Provider Psychiatry & Neurology Neurology
DX: I65.23 Occlusion and stenosis of bilateral carotid arteries (principal); I10 Essential (primary) hypertension
CPT/HCPCS: 93880

== ENCOUNTER 2024-04-21 13:05 | Outpatient (CLI) | payer MEDICARE, OTHER, SELFPAY ==
[2024-04-21 14:09] LABS: Calcium 9.9 mg/dL (8.5-10.5)
[2024-04-21 14:16] LABS: Parathyroid Hormone 63.6 pg/mL (15-65)
[2024-04-21 14:25] LABS: 25 Hydroxy Vitamin D 49 ng/mL (30-100); Vitamin B12 1219 pg/mL (232-1245)
== END 2024-04-21 13:06 | disposition home or self-care (01) ==
LOC: LAB 13:07
PROVIDERS: PCP Family Medicine; Visit Provider Internal Medicine
DX: M81.0 Age-related osteoporosis without current pathological fracture (principal); E11.9 Type 2 diabetes mellitus without complications; E53.8 Deficiency of other specified B group vitamins; Z79.899 Other long term (current) drug therapy
CPT/HCPCS: 36415; 82306; 82310; 82607; 83970

== ENCOUNTER → 2024-04-25 11:13 | Outpatient (BNVA) | payer MEDICARE, OTHER, SELFPAY | PROVIDERS: PCP Family Medicine; Visit Provider Internal Medicine | DX: M81.0 Age-related osteoporosis without current pathological fracture (principal); E11.9 Type 2 diabetes mellitus without complications; E53.8 Deficiency of other specified B group vitamins; D35.1 Benign neoplasm of parathyroid gland | CPT/HCPCS: 99214 ==

== ENCOUNTER 2024-04-27 13:00 | Outpatient (CLI) | payer MEDICARE, OTHER, SELFPAY ==
--- NOTE | 2024-04-27 13:00 | MR_ITS ---
WS: [id number] MRI HEAD WITH CONTRAST TECHNIQUE: Sagittal T1, T2 axial, T2 axial FLAIR, axial susceptibility weighted imaging, axial diffus ion weighted images, and coronal T2 images were obtained. Pre and post-T1 axial and post T1 coronal i mages. ADC and FSPGR images. CLINICAL INFORMATION: R41.3 - Other amnesia COMPARISON: 04/07/2023 FINDINGS: No evidence of restricted diffusion to suggest acute ischemia. Advanced small vessel changes with mod erate parenchymal volume loss similar to previous. Small vessel changes in the lorena. Normal posterior fossa. Normal vascular flow voids at the skull base. No extra-axial fluid collections. No evidence o f mass or mass effect. Paranasal sinuses demonstrate mild mucosal thickening. Mastoid air cells are w ell aerated. Normal posterior nasopharynx. No hemosiderin on susceptibility-weighted images. Normal optic chiasm and pituitary infundibulum. Mod erate symmetric atrophy temporal lobes and hippocampal formations. No abnormal gadolinium enhancement . Dural venous sinuses. MR/MR head wo/w con [id number] IMPRESSION: 1. No evidence of restricted diffusion to suggest acute ischemia. 2. Moderate to advanced small vessel changes with moderate parenchymal volume loss. This is similar to previous. 3. Small vessel changes in the lorena. 4. No hemosiderin on the susceptibility weighted images. 5. Moderate symmetric atrophy temporal lobes and hippocampal formations. 6. No other suspicious findings.
[2024-04-27] MEDS: gadobenate dimeglumine 20 mL vial 13 ML IV (14:04)
== END 2024-04-27 13:01 | disposition home or self-care (01) ==
PROVIDERS: PCP Family Medicine; Visit Provider Psychiatry & Neurology Neurology
DX: R41.3 Other amnesia (principal); G31.9 Degenerative disease of nervous system, unspecified
CPT/HCPCS: 70553; A9577

== ENCOUNTER → 2024-05-02 13:48 | Outpatient (BNVA) | payer MEDICARE, OTHER, SELFPAY | PROVIDERS: PCP Family Medicine; Visit Provider Nurse Practitioner Family | DX: L57.0 Actinic keratosis (principal); B07.8 Other viral warts; L82.1 Other seborrheic keratosis; L98.8 Other specified disorders of the skin and subcutaneous tissue; L72.0 Epidermal cyst | CPT/HCPCS: 17000; 17110; 99213 ==

== ENCOUNTER → 2024-05-10 14:43 | Outpatient (BNVA) | payer MEDICARE, OTHER, SELFPAY | PROVIDERS: PCP Family Medicine; Visit Provider Internal Medicine Rheumatology | DX: M19.041 Primary osteoarthritis, right hand (principal); M19.042 Primary osteoarthritis, left hand; R76.8 Other specified abnormal immunological findings in serum; D89.2 Hypergammaglobulinemia, unspecified | CPT/HCPCS: 72040; 72072; 99214 ==

== ENCOUNTER 2024-06-08 12:16 | Outpatient (CLI) | payer MEDICARE, OTHER, SELFPAY ==
--- NOTE | 2024-06-08 12:30 | US_ITS ---
WS: [id number] THYROID ULTRASOUND HISTORY: parathyroid adenoma COMPARISON: None available. Right lobe: 1.3 cm x 1.6 cm x 4.0 cm (w x ap x l). Volume: 4.1 cm3. Normal size and echotexture. No significant are dominant nodules are present. Left lobe: 2.0 cm x 1.1 cm x 4.5 cm (w x ap x l). Volume: 4.7 cm3. Normal size and echotexture. No significant or dominant nodules are present. Isthmus: 0.3 cm. Reidentified is the hypoechoic well-circumscribed nodule with a few cystic areas posterior to the LEF T thyroid. Mass is slightly dumbbell shaped and extends over a length of 4.3 cm x 1 AP 1.2 cm x 1.2 c m transverse. Minimal increased vascularity. US/US thyroid [id number] IMPRESSION: 1. Normal thyroid. 2. Dumbbell shaped hypoechoic mass measures 4.3 x 1.2 x 1.2 cm posterior to th e LEFT thyroid lobe. This is most typical for a parathyroid adenoma. Larger bashir n most air adenomas. This can be reevaluated by nuclear medicine sestamibi eval uation. Due to its size this may be causing some mass effect upon the esophagus .
== END 2024-06-08 12:17 | disposition home or self-care (01) ==
LOC: RAD 12:16
PROVIDERS: PCP Family Medicine; Visit Provider Internal Medicine
DX: D35.1 Benign neoplasm of parathyroid gland (principal)
CPT/HCPCS: 17000; 17110; 76536; 99213

== ENCOUNTER 2024-06-16 16:14 | Outpatient (CLI) | payer MEDICARE, OTHER, SELFPAY ==
[2024-06-16 17:03] LABS: Free T4 Free Thyroxine 1.41 ng/dL (0.82-1.77); Thyroid Stimulating Hormone 1.63 uIU/mL (0.27-4.20)
[2024-06-16 23:06] LABS: 25 Hydroxy Vitamin D 43 ng/mL (30-100)
[2024-06-16 23:29] LABS: Calcium 9.3 mg/dL (8.5-10.5)
[2024-06-16 23:37] LABS: Parathyroid Hormone 72.6 pg/mL (15-65)
== END 2024-06-16 16:15 | disposition home or self-care (01) ==
LOC: LAB 16:15
PROVIDERS: PCP Family Medicine; Visit Provider Internal Medicine
DX: Z79.899 Other long term (current) drug therapy (principal); E11.9 Type 2 diabetes mellitus without complications; E55.9 Vitamin D deficiency, unspecified; E03.9 Hypothyroidism, unspecified
CPT/HCPCS: 36415; 82306; 82310; 83970; 84439; 84443

== ENCOUNTER → 2024-06-23 08:12 | Outpatient (BNVA) | payer MEDICARE, OTHER, SELFPAY | PROVIDERS: PCP Family Medicine; Visit Provider Internal Medicine | DX: M81.0 Age-related osteoporosis without current pathological fracture (principal); E11.9 Type 2 diabetes mellitus without complications; E53.8 Deficiency of other specified B group vitamins; D35.1 Benign neoplasm of parathyroid gland; Z79.899 Other long term (current) drug therapy | CPT/HCPCS: 99214 ==

== ENCOUNTER → 2024-07-05 08:58 | Outpatient (BNVA) | payer MEDICARE, OTHER, SELFPAY | PROVIDERS: PCP Family Medicine; Referring Provider Psychiatry & Neurology Neurology; Visit Provider Psychiatry & Neurology Neurology | DX: R56.9 Unspecified convulsions (principal); G93.40 Encephalopathy, unspecified; R41.0 Disorientation, unspecified | CPT/HCPCS: 95819 ==

== ENCOUNTER → 2024-09-21 13:00 | Outpatient (BNVA) | payer MEDICARE, OTHER, SELFPAY | PROVIDERS: PCP Family Medicine; Visit Provider Psychiatry & Neurology Neurology | DX: R41.3 Other amnesia (principal) | CPT/HCPCS: 99212 ==

== ENCOUNTER → 2024-11-15 13:41 | Outpatient (BNVA) | payer MEDICARE, OTHER, SELFPAY | PROVIDERS: PCP Family Medicine; Visit Provider Internal Medicine Rheumatology | DX: R76.8 Other specified abnormal immunological findings in serum (principal); M19.041 Primary osteoarthritis, right hand; M19.042 Primary osteoarthritis, left hand; D89.2 Hypergammaglobulinemia, unspecified | CPT/HCPCS: 36415; 72040; 72170; 73030; 80076; 82565; 85025; 85651; 86140; 99214 ==

== ENCOUNTER 2025-02-01 15:40 | Outpatient (CLI) | payer MEDICARE, OTHER, SELFPAY ==
[2025-02-01 17:14] LABS: Calcium 9.4 mg/dL (8.5-10.5)
[2025-02-01 17:53] LABS: Creatinine Urine, Random 73 mg/dL (28-217); Microalbum Creatinine Ratio Ur 14 mg/dL (0-20); Microalbumin Random Urine 1 ug/dL (0-20)
[2025-02-01 18:14] LABS: Alanine Aminotransferase 16 U/L (0-33); Albumin Level 4.1 g/dL (3.5-5.2); Alkaline Phosphatase 114 U/L (35-105); Aspartate Amino Transferase 19 U/L (0-32); Blood Urea Nitrogen 20 mg/dL (8-23); Calcium 9.1 mg/dL (8.5-10.5); Carbon Dioxide 22 mmol/L (22-29); Chloride 102 mmol/L (98-107); Chol HDL Ratio 4.04 mg/dL (0.0-4.40); Cholesterol 218 mg/dL (0-200); Glucose 174 mg/dL (65-115); HDL Cholesterol 54 mg/dL (60-100); LDL Cholesterol Calculated 126 mg/dL (50-129); LDL HDL Ratio 2.33 RATIO (0.00-3.22); Osmolality Calculated 297 mOsm/kg (285-295); Sodium 140 mmol/L (136-145); Total Bilirubin 0.4 mg/dL (0.15-1.2); Total Protein 7.1 g/dL (6.6-8.7); Triglycerides 189 mg/dL (0-150)
[2025-02-01 18:21] LABS: 25 Hydroxy Vitamin D 48 ng/mL (30-100)
[2025-02-01 20:07] LABS: Estmated Average Glucose 157; Hemoglobin A1C 7.1 % (4.0-6.0)
[2025-02-06 11:14] LABS: Thyroid Peroxidase Antobodies <1 IU/mL (<9)
[2025-02-06 15:34] LABS: Thyroglobulin AB <1 IU/mL (< or = 1)
== END 2025-02-01 15:41 | disposition home or self-care (01) ==
LOC: LAB 15:43
PROVIDERS: PCP Family Medicine; Visit Provider Internal Medicine
DX: R41.3 Other amnesia (principal); Z79.899 Other long term (current) drug therapy; D89.2 Hypergammaglobulinemia, unspecified; M19.041 Primary osteoarthritis, right hand; M19.042 Primary osteoarthritis, left hand; R76.8 Other specified abnormal immunological findings in serum; E53.8 Deficiency of other specified B group vitamins; D35.1 Benign neoplasm of parathyroid gland; M81.0 Age-related osteoporosis without current pathological fracture; E11.9 Type 2 diabetes mellitus without complications
CPT/HCPCS: 36415; 80053; 80061; 82044; 82306; 82310; 83036; 83516; 83970; 86376; 86800; 99212

== ENCOUNTER 2025-02-02 13:48 | Outpatient (CLI) | payer MEDICARE, OTHER, SELFPAY | END 2025-02-02 13:49 | disposition home or self-care (01) | LOC: LAB 13:49 | PROVIDERS: PCP Family Medicine; Visit Provider Psychiatry & Neurology Neurology | DX: R41.3 Other amnesia (principal) | CPT/HCPCS: 36415; 83520 ==

== ENCOUNTER → 2025-02-17 10:50 | Outpatient (BNVA) | payer MEDICARE, OTHER, SELFPAY | PROVIDERS: PCP Family Medicine; Visit Provider Internal Medicine | DX: E11.9 Type 2 diabetes mellitus without complications (principal) | CPT/HCPCS: 36415; 84439; 84443 ==

== ENCOUNTER → 2025-03-07 12:55 | Outpatient (BNVA) | payer MEDICARE, OTHER, SELFPAY | PROVIDERS: PCP Family Medicine; Visit Provider Internal Medicine Rheumatology | DX: R76.8 Other specified abnormal immunological findings in serum (principal); M19.041 Primary osteoarthritis, right hand; M19.042 Primary osteoarthritis, left hand; D89.2 Hypergammaglobulinemia, unspecified | CPT/HCPCS: 99214 ==

== ENCOUNTER 2025-04-21 13:20 | Outpatient (CLI) | payer MEDICARE, OTHER, SELFPAY ==
[2025-04-21 14:09] LABS: Creatinine Urine, Random 62 mg/dL (28-217); Microalbum Creatinine Ratio Ur 16 mg/dL (0-20)
[2025-04-21 14:10] LABS: Alanine Aminotransferase 24 U/L (0-33); Albumin Level 4.5 g/dL (3.5-5.2); Alkaline Phosphatase 94 U/L (35-105); Anion Gap 16.2 (5-19); Aspartate Amino Transferase 24 U/L (0-32); Blood Urea Nitrogen 14 mg/dL (8-23); Calcium 9.3 mg/dL (8.5-10.5); Carbon Dioxide 27 mmol/L (22-29); Chloride 102 mmol/L (98-107); Cholesterol 141 mg/dL (0-200); Globulin 2.9 g/dL (1.3-4.6); Glucose 102 mg/dL (65-115); HDL Cholesterol 65 mg/dL (60-100); Osmolality Calculated 293 mOsm/kg (285-295); Potassium 4.2 mmol/L (3.5-5.1); Sodium 141 mmol/L (136-145); Total Protein 7.4 g/dL (6.6-8.7); Triglycerides 162 mg/dL (0-150)
[2025-04-21 14:14] LABS: Estmated Average Glucose 157; Hemoglobin A1C 7.1 % (4.0-6.0)
== END 2025-04-21 13:21 | disposition home or self-care (01) ==
LOC: LAB 13:23
PROVIDERS: PCP Family Medicine; Visit Provider Internal Medicine
DX: E11.9 Type 2 diabetes mellitus without complications (principal); D35.1 Benign neoplasm of parathyroid gland; E53.8 Deficiency of other specified B group vitamins; M81.0 Age-related osteoporosis without current pathological fracture
CPT/HCPCS: 36415; 80053; 80061; 82044; 83036